=== PATIENT | male | born 1955 | race Caucasian/White ===

== ENCOUNTER 2017-02-22 23:26 | Emergency (ER) | payer SELFPAY ==
[~2017-02-22] VITALS: Ht 175.3 cm; Wt 94.0 kg
[2017-02-22 23:36] VITALS: BP 134/50; PULSE 96; RESP 20; TEMP 98.6; O2SAT 94
[2017-02-23 01:15] VITALS: BP 127/72; PULSE 84; RESP 16; O2SAT 95
[2017-02-23] MEDS ORDERED: ASPI81CH CHEW (01:16)
[2017-02-23] MEDS ORDERED: CEPH-460 PO (01:19)
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
[2017-02-23] MEDS ORDERED: IBUPROFEN 600 MG TAB PO ONE (01:30)
== END 2017-02-23 01:42 | disposition home or self-care (01) ==
LOC: PHED 23:26
DX: T24.031A Burn of unspecified degree of right lower leg, initial encounter (principal); X18.XXXA Contact with other hot metals, initial encounter; E78.00 Pure hypercholesterolemia, unspecified; Z72.0 Tobacco use
CPT/HCPCS: 99283

== ENCOUNTER 2018-01-26 20:02 | Inpatient (IN) | payer SELFPAY ==
[~2018-01-26] VITALS: Ht 175.3 cm; Wt 99.0 kg
[~2018-01-26 20:02] MED LIST: ASPI-516 CHEW; CEPH-460 PO
[2018-01-26] MEDS ORDERED: SODIUM CHLORIDE 0.9% FLUSH 10 ML FLUSH IVF PRN (20:15)
[2018-01-26] MEDS ORDERED: ASPIRIN 81 MG CHEW TAB PO ONE (20:15)
--- NOTE | 2018-01-26 20:19 | PD ---
HPI Chief Complaint: Chest Pain Time Seen by Provider: 20:12 Travel History International Travel<30 days: No Contact w/Intl Traveler<30days: No History of Present Illness HPI 62-year-old male patient with previous CAD status post stenting, hypertension, presents to the ER today because he states that he started having a left sided chest discomfort which was like a pressure starting about half an hour prior to arrival. He states that the chest pain is now subsiding and is now to 2 out of 10. He denies any nausea, shortness of breath, coughing, fevers, or any other symptoms. He does not know of any exacerbating or alleviating factors. Modifying Factors: None Associated Signs & Symptoms: Left-sided chest pain Risk Factors: Cardiac history PFSH Past Medical History Arthritis: Yes Asthma: No Blood Disorders: No Anxiety: Yes Heart Rhythm Problems: No Cancer: No Cardiovascular Problems: Yes (STENT) High Cholesterol: Yes Chemotherapy: No Congestive Heart Failure: No COPD: No Cerebrovascular Accident: No Coronary Artery Disease: Yes Diabetes: Yes (PRE) Diminished Hearing: Yes ([place] BILAT) Endocrine: No Gastrointestinal Disorders: No GERD: No Glaucoma: No Genitourinary: No Headaches: Yes (PT DENIES) Hepatitis: No Hiatal Hernia: No Hypertension: No Kidney Stones: No Musculoskeletal: No Neurologic: No Psychiatric: No Reproductive: No Respiratory: No Immunizations Current: Yes Myocardial Infarction: No Radiation Therapy: No Renal Failure: No Seizures: No Sleep Apnea: No Thyroid Disease: No Ulcer: No Past Surgical History AICD: No Cardiac Surgery: Yes (STENT) Coronary Stent: Yes Genitourinary Surgery: No Pacemaker: No Other Surgery: No Social History Alcohol Use: Yes (OCC) Tobacco Use: Yes (OCC) Substance Use: Yes (Marijuana and cocaine) Allergies-Medications (Allergen,Severity, Reaction): Coded Allergies: No Known Allergies (Verified Allergy, Unknown, 01/26/18) Reported Meds & Prescriptions Reported Meds & Active Scripts Active No Active Prescriptions or Reported Medications Review of Systems Except as stated in HPI: all other systems reviewed are Neg Physical Exam Narrative GENERAL: Well-developed elderly white male patient currently in mild distress. Awake and oriented 3. SKIN: Focused skin assessment warm/dry. HEAD: Atraumatic. Normocephalic. EYES: Pupils equal and round. No scleral icterus. No injection or drainage. ENT: No nasal bleeding or discharge. Mucous membranes pink and moist. NECK: Trachea midline. No JVD. Supple. CARDIOVASCULAR: Regular rate and rhythm. No murmur appreciated. RESPIRATORY: No accessory muscle use. Clear to auscultation. Breath sounds equal bilaterally. GASTROINTESTINAL: Abdomen soft, non-tender, nondistended. Hepatic and splenic margins not palpable. MUSCULOSKELETAL: No obvious deformities. No clubbing. No cyanosis. No edema. NEUROLOGICAL: Awake and alert. No obvious cranial nerve deficits. Motor grossly within normal limits. Normal speech. PSYCHIATRIC: Appropriate mood and affect; insight and judgment normal. Data Data Last Documented VS Vital Signs Date Time Temp Pulse Resp B/P (MAP) Pulse Ox O2 Delivery O2 Flow Rate FiO2 01/26/18 21:57 99 20 173/105 (127) 95 Room Air Orders Orders Basic Metabolic Panel (Bmp) (01/26/18 20:12) Ckmb (Isoenzyme) Profile (01/26/18 20:12) Complete Blood Count With Diff (01/26/18 20:12) Magnesium (Mg) (01/26/18 20:12) Prothrombin Time / Inr (Pt) (01/26/18 20:12) Act Partial Throm Time (Ptt) (01/26/18 20:12) Troponin I (01/26/18 20:12) Ecg Monitoring (01/26/18 20:12) Bilateral Bp Monitoring (01/26/18 20:12) Iv Access Insert/Monitor (01/26/18 20:12) Oximetry (01/26/18 20:12) Oxygen Administration (01/26/18 20:12) Aspirin Chew (Aspirin Chew) (01/26/18 20:15) Sodium Chloride 0.9% Flush (Ns Flush) (01/26/18 20:15) Chest, Pa & Lat (01/26/18 20:12) Electrocardiogram (01/26/18 20:08) CKMB (01/26/18 20:28) CKMB% (01/26/18 20:28) Heparin Inj (Heparin Inj) (01/26/18 22:00) Heparin Inj (Heparin Inj) (01/27/18 04:00) Heparin Inj (Heparin Inj) (01/27/18 04:00) Heparin-D5w 25,000 U/250 Ml (Heparin-D5w (01/26/18 22:00) Act Partial Throm Time (Ptt) (01/26/18 21:55) Cbc No Diff, Includes Plts (01/26/18 21:55) Cbc No Diff, Includes Plts (01/29/18 06:00) Act Partial Throm Time (Ptt) (01/27/18 04:55) Occult Blood (Hemoccult) Stool (01/26/18 21:55) Promethazine Inj (Phenergan Inj) (01/26/18 22:00) Admit Order (Ed Use Only) (01/26/18 21:56) Labs Laboratory Tests Test 01/26/18 20:28 White Blood Count 7.4 TH/MM3 Red Blood Count 4.53 MIL/MM3 Hemoglobin 15.4 GM/DL Hematocrit 45.5 % Mean Corpuscular Volume 100.4 FL Mean Corpuscular Hemoglobin 34.0 PG Mean Corpuscular Hemoglobin Concent 33.9 % Red Cell Distribution Width 12.0 % Platelet Count 260 TH/MM3 Mean Platelet Volume 8.2 FL Neutrophils (%) (Auto) 70.2 % Lymphocytes (%) (Auto) 22.2 % Monocytes (%) (Auto) 5.1 % Eosinophils (%) (Auto) 1.5 % Basophils (%) (Auto) 1.0 % Neutrophils # (Auto) 5.2 TH/MM3 Lymphocytes # (Auto) 1.6 TH/MM3 Monocytes # (Auto) 0.4 TH/MM3 Eosinophils # (Auto) 0.1 TH/MM3 Basophils # (Auto) 0.1 TH/MM3 CBC Comment DIFF FINAL Differential Comment Prothrombin Time 10.8 SEC Prothromb Time International Ratio 1.1 RATIO Activated Partial Thromboplast Time 23.3 SEC Blood Urea Nitrogen 16 MG/DL Creatinine 1.30 MG/DL Random Glucose 246 MG/DL Calcium Level 8.5 MG/DL Magnesium Level 2.0 MG/DL Sodium Level 135 MEQ/L Potassium Level 4.7 MEQ/L Chloride Level 101 MEQ/L Carbon Dioxide Level 26.4 MEQ/L Anion Gap 8 MEQ/L Estimat Glomerular Filtration Rate 56 ML/MIN Total Creatine Kinase 186 U/L Creatine Kinase MB 5.2 NG/ML Troponin I 0.12 NG/ML MDM Medical Decision Making Medical Screen Exam Complete: Yes Emergency Medical Condition: Yes Medical Record Reviewed: Yes Interpretation(s) EKG shows normal sinus rhythm at a rate of 94 bpm. No signs of acute ST elevations or depressions. Laboratory Tests Test 01/26/18 20:28 Mean Corpuscular Volume 100.4 FL (80.0-100.0) Neutrophils (%) (Auto) 70.2 % (16.0-70.0) Activated Partial Thromboplast Time 23.3 SEC (24.3-30.1) Random Glucose 246 MG/DL (74-106) Sodium Level 135 MEQ/L (136-145) Estimat Glomerular Filtration Rate 56 ML/MIN (>89) Creatine Kinase MB 5.2 NG/ML (0.5-3.6) Troponin I 0.12 NG/ML (0.02-0.05) Last 24 hours Impressions Chest X-Ray 01/26/182011 Signed Impressions: Service Date/Time: Friday, January 26, 2018 20:34 - CONCLUSION: No acute disease. Allan Ojeda MD Differential Diagnosis ACS versus anxiety versus dysrhythmias Narrative Course Chest x-ray did not show any signs of acute pulmonary processes. His lab work does show some mild elevation in troponin. Cardiac enzymes EKG did not show any signs of acute ST elevations. At this point, plan would be to admit the patient for further treatment, suspected non-ST elevation OR. Case was discussed with Dr. Thomas of hospitalist service for admission. Diagnosis Primary Impression: Non-ST elevation OR (NSTEMI) Admitting Information Admitting Physician Requests: Admit Scripts No Active Prescriptions or Reported Meds Samantha Portillo MD January 26, 2018 20:19
[2018-01-26 20:23] VITALS: RESP 18; O2SAT 99
[2018-01-26 20:48] VITALS: BP 152/99; PULSE 95; RESP 18; O2SAT 96
[2018-01-26 20:49] VITALS: BP_SYST 152; BP_SYST 157; BP_DIAS 103; BP_DIAS 99
[2018-01-26 20:51] LABS: AUTOMATED NEUTROPHIL # 5.2 TH/MM3 (1.8-7.7); BASOPHIL # 0.1 TH/MM3 (0-0.2); EOSINOPHIL # 0.1 TH/MM3 (0-0.4); EOSINOPHIL % 1.5 % (0.0-4.0); HEMATOCRIT 45.5 % (39.0-51.0); HEMOGLOBIN 15.4 GM/DL (13.0-17.0); LYMPH % 22.2 % (9.0-44.0); LYMPHOCYTE # 1.6 TH/MM3 (1.0-4.8); MEAN CELL VOLUME 100.4 FL (80.0-100.0); MEAN CORPUSCULAR HGB CONC 33.9 % (32.0-36.0); MEAN PLATELET VOLUME 8.2 FL (7.0-11.0); MONO % 5.1 % (0.0-8.0); MONOCYTE # 0.4 TH/MM3 (0-0.9); NEUT % 70.2 % (16.0-70.0); PLATELET COUNT 260 TH/MM3 (150-450); RED BLOOD COUNT 4.53 MIL/MM3 (4.50-5.90); WHITE BLOOD COUNT 7.4 TH/MM3 (4.0-11.0)
--- NOTE | 2018-01-26 20:57 | RADRPT ---
EXAM DATE/TIME: 01/26/2018 20:34 [facility] COMPARISON: No previous studies available for comparison. INDICATIONS : Chest pain. MEDICAL HISTORY : None. SURGICAL HISTORY : Cardiac stent. ENCOUNTER: Initial ACUITY: 1 day PAIN SCORE: 4/10 LOCATION: Bilateral upper chest FINDINGS: PA and lateral views of the chest demonstrate the lungs to be symmetrically aerated without evidence of mass, infiltrate or effusion. The cardiomediastinal contours are unremarkable. Osseous structure s are intact. CONCLUSION: No acute disease. Allan Ojeda MD on January 26, 2018 at 20:54 Board Certified Radiologist. This report was verified electronically.
[2018-01-26 20:59] LABS: CHLORIDE 101 MEQ/L (98-107); SODIUM (NA) 135 MEQ/L (136-145)
[2018-01-26 21:02] LABS: BICARBONATE 26.4 MEQ/L (21.0-32.0); BLOOD UREA NITROGEN 16 MG/DL (7-18); CALCIUM 8.5 MG/DL (8.5-10.1); GLUCOSE,RANDOM 246 MG/DL (74-106)
[2018-01-26 21:03] LABS: INTERNATIONAL NORMALIZED RATIO 1.1 RATIO; PROTHROMBIN TIME - PATIENT 10.8 SEC (9.8-11.6)
[2018-01-26 21:05] LABS: GLOMERULAR FILTRATION RATE 56 ML/MIN (>89)
[2018-01-26 21:10] LABS: TROPONIN I 0.12 NG/ML (0.02-0.05)
[2018-01-26 21:57] VITALS: BP 173/105; PULSE 99; RESP 20; O2SAT 95
[2018-01-26] MEDS ORDERED: HEPARIN SODIUM - IV 10,000 UNITS/10 ML VIAL IV PUSH ONE (22:00)
[2018-01-26] MEDS ORDERED: HEPARIN-D5W 25,000 U/250 ML 250 ML IV PRN (22:00)
[2018-01-26] MEDS ORDERED: PROMETHAZINE INJ 25 MG/ML VIAL IM ONE (22:00)
[2018-01-26] MEDS ORDERED: ACETAMINOPHEN 325 MG TAB PO PRN (22:30)
[2018-01-26] MEDS ORDERED: SODIUM CHLORIDE 0.9% FLUSH 10 ML FLUSH IV FLUSH PRN (22:30)
[2018-01-26] MEDS ORDERED: NALOXONE HCL 0.4 MG/ML AMP IV PUSH PRN (22:30)
[2018-01-26 23:17] VITALS: BP 151/90; PULSE 90; RESP 18; O2SAT 95
[2018-01-27] VITALS (8 sets, daily range): BP systolic 117–140; BP diastolic 67–93; PULSE 81–104; RESP 16–20; TEMP 97.9–98.8; O2SAT 94–98
[2018-01-27 02:39] LABS: TROPONIN I 20.4 NG/ML (0.02-0.05)
[2018-01-27 03:03] LABS: BICARBONATE 23.9 MEQ/L (21.0-32.0); CALCIUM 8.5 MG/DL (8.5-10.1)
[2018-01-27 03:07] LABS: CREATININE 0.87 MG/DL (0.60-1.30)
[2018-01-27] MEDS ORDERED: HEPARIN SODIUM - IV 10,000 UNITS/10 ML VIAL IV PUSH PRN ×2 (04:00)
--- NOTE | 2018-01-27 04:03 | HHI.HP ---
HPI Service [facility] Primary Care Physician No Primary Care Physician Admission Diagnosis Non-ST elevation MO Diagnoses: Chief Complaint: chest pressure Travel History International Travel<30 Days: No Contact w/Intl Traveler <30 Da: No Traveled to Known Affected Are: No History of Present Illness 62 y/o male with a history of CAD with stenting, HTN (not on any medications), BPH,and cocaine abuse presented to the [place] ED with complaints of chest pressure. Patient was found to have a troponin of .12 and was transferred to the main facility. Upon examination patient is laying in bed, states he has not had any chest pain since he arrived. He states prior to his arrival to the ED earlier he had one episode of chest pressure that resolved. No associated symptoms or radiation. Denies any sob , fever or chills. He states his last cocaine use was 1 week ago. He complaining of right elbow intermittent pain from a fall one week ago, worse with flexion. He states his last stent was 6 years ago and he does not follow with a record clerk. Review of Systems Except as stated in HPI: all other systems reviewed are Neg Past Family Social History Past Medical History CAD with stenting HTN BPH Past Surgical History Cardiac stents Left knee surgery Reported Medications Reported Meds & Active Scripts Active No Active Prescriptions or Reported Medications Allergies: Coded Allergies: No Known Allergies (Verified Allergy, Unknown, 01/26/18) Active Ordered Medications Current Medications Medications (Trade) Dose Ordered Sig/Sadi Route Start Time Stop Time Status Last Admin (Heparin Inj) 5,000 units UNSCH PRN IV PUSH 01/27/18 04:00 (Heparin Inj) 2,500 units UNSCH PRN IV PUSH 01/27/18 04:00 Heparin Sodium/ Dextrose 250 ml @ 10 mls/hr TITRATE PRN IV 01/26/18 22:00 01/26/18 22:16 (NS Flush) 2 ml UNSCH PRN IV FLUSH 01/26/18 22:30 (NS Flush) 2 ml BID IV FLUSH 01/27/18 09:00 (Tylenol) 650 mg Q4H PRN PO 5/13/18 22:30 (Narcan Inj) 0.4 mg UNSCH PRN IV PUSH 01/26/18 22:30 Family History Patient denies any family history Social History Tobacco use: 09/19 PPD Alcohol use: Occasionally Illicit drug use: Cocaine Physical Exam Vital Signs Vital Signs Date Time Temp Pulse Resp B/P (MAP) Pulse Ox O2 Delivery O2 Flow Rate FiO2 01/27/18 03:58 98.2 81 18 117/87 (97) 94 01/27/18 03:02 98.2 81 16 117/67 (84) 95 01/27/18 02:12 92 17 140/93 (109) 95 01/26/18 23:17 90 18 151/90 (110) 95 Room Air 01/26/18 21:57 99 20 173/105 (127) 95 Room Air 01/26/18 20:49 152/99 (116) 157/103 (121) 01/26/18 20:48 95 18 152/99 (116) 96 Room Air 01/26/18 20:23 99 Room Air 01/26/18 20:23 18 99 Room Air 01/26/18 20:23 18 99 Room Air Physical Exam GENERAL: This is a well-nourished, well-developed patient, in no apparent distress. SKIN: No rashes, ecchymoses or lesions. Cool and dry. HEAD: Atraumatic. Normocephalic EYES: Pupils equal round and reactive. CARDIOVASCULAR: Regular rate and rhythm without murmurs, gallops, or rubs. RESPIRATORY: Clear to auscultation. Breath sounds equal bilaterally. No wheezes , rales, or rhonchi. GASTROINTESTINAL: Abdomen soft, non-tender, nondistended. MUSCULOSKELETAL: Extremities without clubbing, cyanosis, or edema. No joint tenderness, effusion, or edema noted. No calf tenderness. NEUROLOGICAL: Awake and alert. Motor and sensory grossly within normal limits. Normal speech. Laboratory Laboratory Tests Test 01/26/18 20:28 01/27/18 02:00 White Blood Count 7.4 Red Blood Count 4.53 Hemoglobin 15.4 Hematocrit 45.5 Mean Corpuscular Volume 100.4 Mean Corpuscular Hemoglobin 34.0 Mean Corpuscular Hemoglobin Concent 33.9 Red Cell Distribution Width 12.0 Platelet Count 260 Mean Platelet Volume 8.2 Neutrophils (%) (Auto) 70.2 Lymphocytes (%) (Auto) 22.2 Monocytes (%) (Auto) 5.1 Eosinophils (%) (Auto) 1.5 Basophils (%) (Auto) 1.0 Neutrophils # (Auto) 5.2 Lymphocytes # (Auto) 1.6 Monocytes # (Auto) 0.4 Eosinophils # (Auto) 0.1 Basophils # (Auto) 0.1 CBC Comment DIFF FINAL Differential Comment Prothrombin Time 10.8 Prothromb Time International Ratio 1.1 Activated Partial Thromboplast Time 23.3 Blood Urea Nitrogen 16 15 Creatinine 1.30 0.87 Random Glucose 246 148 Calcium Level 8.5 8.5 Magnesium Level 2.0 Sodium Level 135 135 Potassium Level 4.7 3.9 Chloride Level 101 103 Carbon Dioxide Level 26.4 23.9 Anion Gap 8 8 Estimat Glomerular Filtration Rate 56 90 Total Creatine Kinase 186 1119 Creatine Kinase MB 5.2 102.5 Troponin I 0.12 20.40 Creatine Kinase MB % 9.2 Result Diagram: 01/26/18202701/27/18199 Imaging Last Impressions Chest X-Ray 01/26/182011 Signed Impressions: Service Date/Time: Friday, January 26, 2018 20:34 - CONCLUSION: No acute disease. Allan Ojeda MD Caprini VTE Risk Assessment Caprini VTE Risk Assessment: Mod/High Risk (score >= 2) Caprini Risk Assessment Model Point Value = 1 Point Value = 2 Point Value = 3 Point Value = 5 Age 41-60 Minor surgery BMI > 25 kg/m2 Swollen legs Varicose veins or History of unexplained or recurrent spontaneous Oral contraceptives or hormone replacement Sepsis (< 1 month) Serious lung disease, including pneumonia (< 1 month) Abnormal pulmonary function Acute myocardial infarction Congestive heart failure (< 1 month) History of inflammatory bowel disease Medical patient at bed rest Age 61-74 Arthroscopic surgery Major open surgery (> 45 min) Laparoscopic surgery (> 45 min) Malignancy Confined to bed (> 72 hours) Immobilizing plaster cast Central venous access Age >= 75 History of VTE Family history of VTE Factor V Leiden Prothrombin [id number] Lupus anticoagulant Anticardiolipin antibodies Elevated serum homocysteine Heparin-induced thrombocytopenia Other congenital or acquired thrombophilia Stroke (< 1 month) Elective arthroplasty Hip, pelvis, or leg fracture Acute spinal cord injury (< 1 month) Prophylaxis Regimen Total Risk Factor Score Risk Level Prophylaxis Regimen 0-1 Low Early ambulation 2 Moderate Order ONE of the following: *Sequential Compression Device (SCD) *Heparin 5000 units SQ BID 3-4 Higher Order ONE of the following medications: *Heparin 5000 units SQ TID *Enoxaparin/Lovenox 40 mg SQ daily (WT < 150 kg, CrCl > 30 mL/min) *Enoxaparin/Lovenox 30 mg SQ daily (WT < 150 kg, CrCl > 10-29 mL/min) *Enoxaparin/Lovenox 30 mg SQ BID (WT < 150 kg, CrCl > 30 mL/min) AND/OR *Sequential Compression Device (SCD) 5 or more Highest Order ONE of the following medications: *Heparin 5000 units SQ TID (Preferred with Epidurals) *Enoxaparin/Lovenox 40 mg SQ daily (WT < 150 kg, CrCl > 30 mL/min) *Enoxaparin/Lovenox 30 mg SQ daily (WT < 150 kg, CrCl > 10-29 mL/min) *Enoxaparin/Lovenox 30 mg SQ BID (WT < 150 kg, CrCl > 30 mL/min) AND *Sequential Compression Device (SCD) Assessment and Plan Problem List: (1) Non-ST elevation MO (NSTEMI) ICD Code: I21.4 - Non-ST elevation (NSTEMI) myocardial infarction Status: Acute (2) Cocaine abuse ICD Code: F14.10 - Cocaine abuse, uncomplicated Status: Acute Assessment and Plan 62 y/o male with a history of CAD with stenting, HTN (not on any medications), BPH,and cocaine abuse presented to the [place] ED with complaints of chest pressure. NSTEMI EKG reviewed and shows SR, no ST elevation Troponin .12-->20.40 -Heparin drip -Consult cardiology -Morphine IV for chest pain -Serial troponin and EKGs -ASA x 1 HTN, chronic not on any medications -Clonidine PRN, monitor vitals Cocaine abuse -Counseled DVT prophylaxis: Heparin Discussed Condition With Patient and RN Physician Certification 2 Midnight Certification Type: Admission for Inpatient Services Order for Inpatient Services The services are ordered in accordance with Medicare regulations or non- Medicare payer requirements, as applicable. In the case of services not specified as inpatient-only, they are appropriately provided as inpatient services in accordance with the 2-midnight benchmark. Estimated LOS (days): 2 days is the estimated time the patient will need to remain in the hospital, assuming treatment plan goals are met and no additional complications. Post-Hospital Plan: Yanna Holder January 27, 2018 04:03
[2018-01-27] MEDS ORDERED: ASPIRIN 325 MG TAB PO ONE (04:30)
[2018-01-27] MEDS: SODIUM CHLOR 0.9% 1000 ML INJ 1,000 ML IV SCH ×2 (06:06→14:07)
[2018-01-27 07:03] LABS: AUTOMATED NEUTROPHIL # 3.9 TH/MM3 (1.8-7.7); BASOPHIL % 0.6 % (0.0-2.0); EOSINOPHIL # 0.1 TH/MM3 (0-0.4); EOSINOPHIL % 1.7 % (0.0-4.0); HEMATOCRIT 44.9 % (39.0-51.0); HEMOGLOBIN 15.4 GM/DL (13.0-17.0); LYMPHOCYTE # 2.5 TH/MM3 (1.0-4.8); MEAN CORPUSCULAR HEMOGLOBIN 35.3 PG (27.0-34.0); MEAN CORPUSCULAR HGB CONC 34.3 % (32.0-36.0); MEAN PLATELET VOLUME 9.4 FL (7.0-11.0); MONO % 6.3 % (0.0-8.0); MONOCYTE # 0.4 TH/MM3 (0-0.9); NEUT % 55.4 % (16.0-70.0); PLATELET COUNT 205 TH/MM3 (150-450); RED BLOOD COUNT 4.36 MIL/MM3 (4.50-5.90); RED CELL DISTRIBUTION WIDTH 12.6 % (11.6-17.2)
[2018-01-27] MEDS: SODIUM CHLORIDE 0.9% FLUSH 10 ML FLUSH IV FLUSH SCH ×2 (09:18→21:00)
--- NOTE | 2018-01-27 10:24 | HHI.PR ---
Addendum to Inpatient Note Addendum Reason: Additional Documentation Additional Information Patient seen today, lying in bed, awake, alert, no acute distress, heart sounds regular rate rhythm, no murmurs, no lower extremity edema. Patient denies having any active chest pain. reports using cocaine within the last week. Patient also thinks he fell on his right elbow sometime earlier in the week and once us to address it. Right elbow seems to be intact but has tenderness to palpation over the olecranon fossa. Obtaining elbow x-ray. Ricci Brink MD January 27, 2018 10:24
--- NOTE | 2018-01-27 12:21 | RADRPT ---
EXAM DATE/TIME: 01/27/2018 11:47 [facility] COMPARISON: No previous studies available for comparison. INDICATIONS : Patient fell on right elbow. MEDICAL HISTORY : None. SURGICAL HISTORY : None. ENCOUNTER: Initial ACUITY: 1 week PAIN SCORE: 3/10 LOCATION: Right posterior Elbow FINDINGS: Multiple view examination of the right elbow demonstrates soft tissue swelling and degenerative mcclain es without joint effusion, or fracture. The osseous structures are in normal alignment. Bony minera lization is normal. CONCLUSION: Soft tissue swelling. No fracture. Allan Ojeda MD on January 27, 2018 at 12:17 Board Certified Radiologist. This report was verified electronically.
[2018-01-27 13:06] LABS: TROPONIN I GREATER THAN 40.00 NG/ML (0.02-0.05)
[2018-01-27] MEDS ORDERED: HEPARIN-NS/PF FLUSH BAG 1,000 ML IV FLUSH ONE (14:21)
[2018-01-27] MEDS ORDERED: NITROGLYCERIN INJ 5 ML ONE (14:21)
[2018-01-27] MEDS ORDERED: MIDAZOLAM HCL 5 MG/5 ML VIAL ONE (14:52)
--- NOTE | 2018-01-27 15:24 | MB ---
cc: Rosalio Em MD DATE: 01/27/2018 HISTORY OF PRESENT ILLNESS: A 62-year-old white male with a history of coronary artery disease, coronary stent, cocaine use, last 1 week ago, and hypertension. He presented to the emergency room with chest pressure and was found to have non-ST elevation myocardial infarction with the last troponin over 40. He has not had any further chest discomfort. He has history of coronary stenting 6 years ago. He has not had any shortness of breath or peripheral edema. PAST MEDICAL HISTORY: Positive for coronary artery disease, coronary stent 6 years ago, hypertension, BPH, left knee surgery. ALLERGIES: NONE. SOCIAL HISTORY: The patient is a smoker. He drinks alcohol occasionally. He uses cocaine. FAMILY HISTORY: Negative for heart disease. REVIEW OF SYSTEMS: Otherwise negative. PHYSICAL EXAMINATION: VITAL SIGNS: Blood pressure 140/75, pulse 93 and regular. HEENT: Negative. NECK: 2+ carotid upstrokes, no bruits. LUNGS: Clear. HEART: Regular with no murmur, gallop or rub. ABDOMEN: Soft. No bruits. EXTREMITIES: Without edema, distal pulses. NEUROLOGIC: Grossly nonfocal. DIAGNOSTIC DATA: EKG was reviewed and showed a sinus rhythm, inferior Q-waves and nonspecific T-wave changes. LABORATORY DATA: Hemoglobin 15.4. Potassium 3.9, creatinine 1.3 and 0.9. CK 186, 1119, 1474. Troponin 0.12, 20.4 and greater than 40.0. DIAGNOSES: 1. Acute non-ST elevation myocardial infarction. 2. Cocaine abuse. 3. Hypertension. 4. Coronary artery disease, history of coronary stenting. 5. Smoking. PLAN: Mr. Valencia will be scheduled for cardiac catheterization and coronary intervention if necessary. He understands risks and benefits and wishes to proceed. He was strongly encouraged to stop using cocaine and also to quit smoking. Rosalio Em MD OQ/SB , 03:07 PM , 03:24 PM
[2018-01-27] MEDS ORDERED: HEPARIN SODIUM - IV 10,000 UNITS/10 ML VIAL ONE (15:38)
[2018-01-27] MEDS ORDERED: CLOPIDOGREL 300 MG TAB ONE (16:00)
--- NOTE | 2018-01-27 16:20 | CATHPROC ---
[email or web address] HIS Report Study Information Study Number Admission Scheduled Start Study Start [id number] Jan 26 2018 9:58PM 01/27/2018 Jan 27 2018 2:46PM [place] Service Cardiac Catheterization Admit Source Facility Department Other [facility] - Agricultural Equipment Sales Engineer Physician and Clinical Staff Initial Rosalio Felix Salesperson Shoes Sergio RN, Colin Recorder Leo Francis RCIS(BS) Scrub Sanjana Patel,RT(R) Procedures Performed Procedure Location (Site) Vessel Name Angiogram LV LV Ventricle Coronary Angiograms LCA Left Coronary Coronary Angiograms RCA Right Coronary L Heart Cath PTCA CIRC Mid CIRC Stent CIRC Mid CIRC Wire insertion Fem Art (right) Femoral Art Equipment Time Brand Mgr Description Size Mfg Part Number Used/Scraped WIRE, BALANCE MIDDLEWEIGHT [id number] 15:44 [employer] 190CM Used 190CM *[id number] TRANSDUCER, TRUWAVE [id number] 14:51 ATKINSON WALKER * Used W/STOCKCOCK *[id number] *[id number] [id number] *[id number] *[id number] 15:59 DAIG/ST. ONEL MEDICAL ANGIOSEAL, FR6 VIP FR 6 Used *[id number] 14:51 Cuurio INDUSTRIES PACK, CCL CUSTOM * Used *[id number] 14:51 Cuurio PACER PEN, SKIN DUAL W/ RULER * Used *[id number] 15:48 MEDTRONIC BALLOON, 2.0 X 10MM EUPHORA 10MM Used *[id number] 14:50 MEDTRONIC JL 4.0 DXTERITY CATHETER FR 5 Used *[id number] 15:55 MEDTRONIC STENT, 2.75 18 INTEGRITY 2.75 18 Used *[id number] 15:42 Mimetas MEDICAL 30 CLEMENT INDEFLATOR Used *[id number] 15:45 Mimetas MEDICAL SHEATH, FR6.5 PRELUDE 11CM FR 6.5 038ACT Used *[id number] 14:51 Splash.FM WIRE, 3MMJ .035 180CM 180CM Used *[id number] PROBE COVER, STERILE [id number] 14:51 Augmentra MEDICAL * Used ULTRASOUND W/ GEL *[id number] 14:51 [facility], 4 PORT * Used *[id number] 14:51 NAMIC TUBING, HIGH PRESSURE 48" 48" Used *[id number] 14:51 NYCOMED OMNIPAQUE, 350 MG, 150ML 150ML [id number] Used 15:33 NYCOMED OMNIPAQUE, 350 MG, 50ML 50ML [id number] Used [id number] 14:51 TIWARI MEDICAL BLANKET,WARM AIR CCL * Used *[id number] 14:51 TERUMO MEDICAL SHEATH, FR5 TERUMO (10CM) FR 5 Used *[id number] [id number] 15:41 TERUMO MEDICAL SHEATH, FR6 TERUMO (10CM) FR 6 Used *[id number] Equipment Model, Serial, Lot Number and Expiration Data Description Model Number Serial Number Lot Number Expiration Date ANGIOSEAL, FR6 VIP [id number] 09-15-2018 JL 4.0 DXTERITY CATHETER [id number] 06-05-2020 STENT, 2.75 18 INTEGRITY [id number] 01-18-2019 History: Allergies Allergy Reaction No Known Allergies History: Risk Factors Family History of Hypertension Dyslipidemia Previous OR Previous Heart Failure Premature CAD Yes Yes Yes Yes No Prior Valve Prior PCI Prior PCIDate Prior CABG Surgery No Yes 01/18/2016 No Cerebrovascular Peripheral Artery Chronic Lung On Dialysis Diabetes Disease Disease Disease No No No No No History: Symptoms/Diagnosis Selection Items Chest pain History: Stress Tests Stress or Imaging Studies Performed No History: Other Disease Selection Items CAD HTN History: Other Current Smoker No Labs Hgb (g/dl) Hct (%) WBC (l/cumm) Platelets (thousands) 11.60-17.00 35.00-51.00 4.00-11.00 150.00-450.00 15.4 44.9 7 205 Glucose (mg/dl) BUN (mg/dl) Creatinine (mg/dl) BUN:Creatinine (1:x) 74.00-106.00 7.00-18.00 0.50-1.30 10.00-20.00 148 15 0.8 18.8 Na (meq/l) K (meq/l) 136.00-145.00 3.50-5.10 135 3.9 INR (PTT:PT) 0.90-1.10 1.1 Troponin I (ng/ml) CPK (u/l) CPK-MB (ng/ML) 0.02-0.05 26.00-308.00 0.50-3.60 40 1119 Not Drawn Medication Medication Total Dose (Bolus/Oral) Medication Total Dosage/Unit 1% XYLOCAINE 20 mL FENTANYL 100 mcg HEPARIN 7000 units NTG (IC) 200 mcg PLAVIX 600 mg VERSED 5 mg Medications (Bolus/Oral) Medication Time Given Dosage/Unit Administered By Reason VERSED 01/27/2018 3:20:20 PM 2 mg Sergio GOETZ, Colin 2 mg VERSED given in lab by Sergio GOETZ, Colin in Left Antecubital via Peripheral IV. Ordered by Rosalio Em. FENTANYL 01/27/2018 3:21:20 PM 50 mcg Sergio GOETZ, Colin 50 mcg FENTANYL given in lab by Sergio GOETZ, Colin in Left Antecubital via Peripheral IV. Ordered by Rosalio Lew. VERSED 01/27/2018 3:29:41 PM 1 mg Sergio GOETZ, Colin 1 mg VERSED given in lab by Sergio GOETZ, Colin in Left Antecubital via Peripheral IV. Ordered by Rosalio Em. 1% XYLOCAINE 01/27/2018 3:30:10 PM 20 mL Rosalio Em 20 mL 1% XYLOCAINE given in lab by Rosalio Em in Right Groin via Subcutaneous. FENTANYL 01/27/2018 3:30:15 PM 25 mcg Sergio GOETZ, Colin 25 mcg FENTANYL given in lab by Sergio GOETZ, Colin in Left Antecubital via Peripheral IV. Ordered by Rosalio Lew. FENTANYL 01/27/2018 3:34:58 PM 25 mcg Sergio GOETZ, Colin 25 mcg FENTANYL given in lab by Sergio GOETZ, Colin in Left Antecubital via Peripheral IV. Ordered by Rosalio Lew. HEPARIN 01/27/2018 3:43:56 PM 7000 units Sergio GOETZ, Colin 7000 units HEPARIN given in lab by Sergio GOETZ, Colin in Left Antecubital via Peripheral IV. Ordered by Rosalio Em. NTG (IC) 01/27/2018 3:47:11 PM 200 mcg Sanjana Patel 200 mcg NTG (IC) given in lab by Sanjana Patel, RT(R) via Intra-coronary. Ordered by Rosalio Em . VERSED 01/27/2018 3:49:05 PM 1 mg Sergio GOETZ, Colin 1 mg VERSED given in lab by Colin Hill RN in Left Antecubital via Peripheral IV. Ordered by Rosalio Em. PLAVIX 01/27/2018 4:02:00 PM 600 mg Colin Hill RN 600 mg PLAVIX given in lab by Colin Hill RN via Oral. Ordered by Rosalio Em. VERSED 01/27/2018 4:06:27 PM 1 mg Colin Hill RN 1 mg VERSED given in lab by Colin Hill RN in Left Antecubital via Peripheral IV. Ordered by Rosalio Em. Medication (Drip) Medication Time Given Dosage/Unit Concentration/Unit Diluent (ml) Solution IV Solutions 01/27/2018 2:46:30 PM 0 mL (IV) 500 NaCl .9 Patient arrived on IV Solutions in Left Antecubital via Peripheral IV. Pump/Drip Flow = 20 ml/hr usin g NaCl .9. Ordered by Rosalio Em. Initial Case Assessment Cardiovascular HR Rhythm NIBP Chest Pain 87 nsr 148/94 0 Edema Present Skin color Skin None Normal Warm Dry Circulatory - Right Pulses Dorsalis Pedis Femoral 2 2 Scale (0,1,2,3,4,d) Circulatory - Left Pulses Dorsalis Pedis Femoral 1 Scale (0,1,2,3,4,d) Neurological State Oriented to time-place- Alert Moves all extremities person Respiration - General Respiration Rate SpO2 (%) (B/min) 15 97 Final Case Assessment Cardiovascular HR Rhythm NIBP Chest Pain 83 nsr 120/81 0 Edema Present Skin color Skin None Normal Warm Dry Circulatory - Right Pulses Dorsalis Pedis Femoral 2 2 Scale (0,1,2,3,4,d) Circulatory - Left Pulses Dorsalis Pedis Femoral 1 Scale (0,1,2,3,4,d) Neurological State Oriented to time-place- Alert Moves all extremities person Respiration - General Respiration Rate SpO2 (%) (B/min) 15 97 Chronological Log Time Study Chronological Log 14:46:23 Patient arrived via Bed. Heparin drip DCed upon coal picker per MD. 14:46:23 Patient Name, D.O.B, / Armband Verified By R.N. 14:46:24 Consent signed by the physician and the patient and verified by the Agricultural Equipment Sales Engineer staff. 14:46:24 Pre-op and post- op instructions given; patient acknowledges understanding of instructions. 14:46:25 Verbal Stimulation=2 Physical Stimulation=2 Airway=2 Respiration=2 TOTAL=8. (0=absent, 1=li mited, 2=present) 14:46: Presedation assessment performed by Agricultural Equipment Sales Engineer RN. 14:46: Immediate Presedation assesment performed by physician. 14:46: Patient has been NPO for More than 6Hrs. 14:46: Skin Breakdown- none per patient 14:46: Patient Warmer Placed on the Table. 14:46: Yordan Prominences Protected 14:46: A # 20 IV was noted in the Antecubital (left). Grade = 0 Patient arrived on IV Solutions in Left Antecubital via Peripheral IV. Pump/Drip Flow = 20 ml/h r using NaCl .9. Ordered 14:: by Rosalio Em. 14:46: History and physical on the chart or being dictated. Vitals capture started with the following parameters, Patient=Adult, Interval=5 min, Initial Pr gujfjm=397 mmHg, 14:51:09 Deflation Rate=5 mmHg, Cuff placed on Left Arm 14:51:29 Reference ECG taken 14:51:45 HR=87 bpm, YEAB=611/94 mmhg, SpO2=95.0 %, Resp=14 B/min, Pain=0, Johnathon=10, Gamez=2 Assessment: Initial Case, HR=87 BPM, Rhythm=nsr, FSAF=810/94 mmhg, Chest Pain=0, Edema=None, Co hanh=Normal, Skin = Warm, Dry Right Pulses: Guzman Ped=2, Femoral=2 14:52:31 Left Pulses: Guzman Ped=1 Neurological: State=Alert, Ox3, MONTOYA Respiration: Resp=15 B/min, SpO2=97 % 14:56:40 Bilateral groins prepped with 2% chlorhexidine, and draped after a 3 minute waiting time. 14:56:46 HR=85 bpm, SFQZ=771/95 mmhg, SpO2=95.0 %, Resp=13 B/min, Pain=0, Johnathon=10, Gamez=2 15:01:45 HR=88 bpm, UCSX=554/98 mmhg, SpO2=95.0 %, Resp=15 B/min, Pain=0, Johnathon=10, Gamez=2 15:06:46 HR=87 bpm, NKQZ=309/91 mmhg, SpO2=96.0 %, Resp=13 B/min, Pain=0, Johnathon=10, Gamez=2 15:07:49 paged 15:09:04 Pressure channel 1 zeroed. 15:11:48 HR=85 bpm, PYIK=073/88 mmhg, SpO2=97.0 %, Resp=12 B/min, Pain=0, Johnathon=10, Gamez=2 15:16:44 HR=81 bpm, OHLJ=711/86 mmhg, SpO2=97.0 %, Resp=15 B/min, Pain=0, Johnathon=10, Gamez=2 15:20:00 MD arrived. 15:20:10 Immediate Presedation assesment performed by physician. 15:20:20 2 mg VERSED given in lab by Colin Hill RN in Left Antecubital via Peripheral IV. Ordered by Rosalio Em. 15:21:20 50 mcg FENTANYL given in lab by Colin Hill RN in Left Antecubital via Peripheral IV. Orde red by Rosalio Em. 15:22:27 Contrast Scanned 15:23:03 HR=87 bpm, RMFY=352/78 mmhg, SpO2=90.0 %, Resp=16 B/min, Pain=0, Johnathon=10, Gamez=2 15:26:49 HR=84 bpm, MRUX=903/77 mmhg, SpO2=98.0 %, Resp=18 B/min, Pain=0, Johnathon=10, Gamez=2 15:29:41 1 mg VERSED given in lab by Colin Hill RN in Left Antecubital via Peripheral IV. Ordered by Rosalio Em. Time Out. Correct patient, correct procedure, correct physician, power injector not loaded with contrast with surgical 15:29:52 team present. Time Out Concurred by MD and individual staff in procedure. 15:29:58 Case Start 15:30:03 Verbal Stimulation=2 Physical Stimulation=2 Airway=2 Respiration=2 TOTAL=8. (0=absent, 1=li mited, 2=present) 15:30:10 20 mL 1% XYLOCAINE given in lab by Rosalio Em in Right Groin via Subcutaneous. 15:30:15 25 mcg FENTANYL given in lab by Colin Hill RN in Left Antecubital via Peripheral IV. Julio major by Rosalio Em. 15:31:36 Access site was Right Femoral Artery. 15:31:48 HR=83 bpm, ZWIP=841/88 mmhg, SpO2=96.0 %, Resp=15 B/min, Pain=0, Johnathon=10, Gamez=2 15:31:49 A SHEATH, FR5 TERUMO (10CM) FR 5 was advanced into the Fem Art (right) using the Percutaneo us technique. A PIGTAIL ANG. INFINITI CATHETER FR 5 was advanced over a wire. OMNIPAQUE, 350 MG, 150ML 150ML was used 15:32:01 for injections. Recorded Pressure: LV, HR=92, Condition=Condition 1 15:33:04 (Left Ventricle) LV 112/13/14 15:33:14 The LV was injected at 10 cc/sec for a total of 30. OMNIPAQUE, 350 MG, 50ML 50ML used. Recorded Pressure: LV, Ao, HR=94, Condition=Condition 1 15:34:40 (Left Ventricle) LV 117/12/16, (Aorta) Ao 118/77/95 15:34:58 25 mcg FENTANYL given in lab by Colin Hill RN in Left Antecubital via Peripheral IV. Julio red by Rosalio Em. 15:35:00 Catheter was removed A JL 4.0 DXTERITY CATHETER FR 5 was advanced over a wire. OMNIPAQUE, 350 MG, 150ML 150ML was us ed for 15:35:01 injections. 15:36:07 The LCA was injected and visualized at various angles. OMNIPAQUE, 350 MG, 150ML 150ML used . Recorded Pressure: Ao, HR=83, Condition=Condition 1 15:36:28 (Aorta) Ao 116/72/92 15:36:49 HR=85 bpm, RDLJ=898/80 mmhg, SpO2=94.0 %, Resp=18 B/min, Pain=0, Johnathon=10, Gamez=2 15:37:49 Catheter was removed A AR MOD INFINITI CATHETER FR 5 was advanced over a wire. OMNIPAQUE, 350 MG, 150ML 150ML was us ed for 15:37:50 injections. 15:38:25 Activated Clotting Time Drawn 15:40:12 The RCA was injected and visualized at various angles. OMNIPAQUE, 350 MG, 50ML 50ML used. 15:40:20 ACT (Normal Range 90-180) = 133 15:41:18 Catheter was removed 15:41:48 HR=87 bpm, YQJF=573/80 mmhg, SpO2=95.0 %, Resp=17 B/min, Pain=0, Johnathon=10, Gamez=2 15:43:56 7000 units HEPARIN given in lab by Colin Hill RN in Left Antecubital via Peripheral IV. O rdered by Rosalio Em. A SHEATH, FR6.5 PRELUDE 11CM FR 6.5 was exchanged in the Fem Art (right). This was necessary in order to 15:44:53 accomodate a larger catheter. A XBC 3.5 GUIDE CATHETER FR 6 was advanced over a wire. OMNIPAQUE, 350 MG, 150ML 150ML was used for 15:44:57 injections. 15:46:22 Activated Clotting Time Drawn 15:46:51 HR=86 bpm, OVZC=214/74 mmhg, SpO2=98.0 %, Resp=21 B/min, Pain=0, Johnathon=10, Gamez=2 15:47:11 200 mcg NTG (IC) given in lab by Sanjana Patel RT(R) via Intra-coronary. Ordered by Rosalio Menchaca. 15:47:30 A WIRE, BALANCE MIDDLEWEIGHT 190CM 190CM was inserted via Fem Art (right). 15:48:22 Interventional wire has crossed the lesion A BALLOON, 2.0 X 10MM EUPHORA 10MM was inserted over WIRE, BALANCE MIDDLEWEIGHT 190CM 190CM via the 15:48:29 Fem Art (right). 15:49:05 1 mg VERSED given in lab by Colin Hill RN in Left Antecubital via Peripheral IV. Ordered by Rosalio Em. A BALLOON, 2.0 X 10MM EUPHORA 10MM over a WIRE, BALANCE MIDDLEWEIGHT 190CM 190CM in the CIRC Mi d was 15:49:53 inflated using a 30 CLEMENT INDEFLATOR at 12 clement for 10 sec. A BALLOON, 2.0 X 10MM EUPHORA 10MM over a WIRE, BALANCE MIDDLEWEIGHT 190CM 190CM in the CIRC Mi d was 15:51:46 inflated using a 30 CLEMENT INDEFLATOR at 16 clement for 30 sec. 15:51:50 HR=95 bpm, JAID=873/75 mmhg, SpO2=95.0 %, Resp=15 B/min, Pain=0, Johnathon=10, Gamez=2 A BALLOON, 2.0 X 10MM EUPHORA 10MM over a WIRE, BALANCE MIDDLEWEIGHT 190CM 190CM in the CIRC Mi d was 15:52:19 inflated using a 30 CLEMENT INDEFLATOR at 12 clement for 7 sec. 15:52:35 ACT (Normal Range 90-180) = 308 A BALLOON, 2.0 X 10MM EUPHORA 10MM over a WIRE, BALANCE MIDDLEWEIGHT 190CM 190CM in the CIRC Mi d was 15:52:42 inflated using a 30 CLEMENT INDEFLATOR at 12 clement for 7 sec. 15:53:27 Balloon Removed. An STENT, 2.75 18 INTEGRITY 2.75 18 Bare Metal Stent was inserted through a XBC 3.5 GUIDE KAREN TER FR 6 over 15:55:19 a WIRE, BALANCE MIDDLEWEIGHT 190CM 190CM. 15:56:49 HR=90 bpm, MAEG=953/73 mmhg, SpO2=96.0 %, Resp=16 B/min, Pain=0, Johnathon=10, Gamez=2 A STENT, 2.75 18 INTEGRITY 2.75 18 was deployed using a 30 CLEMENT INDEFLATOR at 12 atmospheres for 18 seconds in 15:57:00 the CIRC Mid. 15:57:42 Re-inflated the stent balloon in the CIRC Mid to 16 CLEMENT for 12 seconds. 15:58:09 Delivery device removed 15:59:08 Wire removed 15:59:12 Catheter was removed 16:00:19 An injection in the Fem Art (right) was made through the SHEATH, FR6.5 PRELUDE 11CM FR 6.5. 16:01:50 HR=85 bpm, EUQZ=369/79 mmhg, SpO2=98.0 %, Resp=17 B/min, Pain=0, Johnathon=10, Gamez=2 16:02:00 600 mg PLAVIX given in lab by Colin Hill RN via Oral. Ordered by Rosalio Em. 16:06:27 1 mg VERSED given in lab by Colin Hill RN in Left Antecubital via Peripheral IV. Ordered by Rosalio Em. 16:06:28 ANGIOSEAL, FR6 VIP FR 6 placement in the Fem Art (right) 16:06:51 HR=86 bpm, XQSB=912/81 mmhg, GfE8=813.0 %, Resp=16 B/min, Pain=0, Johnathon=10, Gamez=2 16:07:22 Case End Assessment: Final Case, HR=83 BPM, Rhythm=nsr, UUXK=975/81 mmhg, Chest Pain=0, Edema=None, Col or=Normal, Skin = Warm, Dry Right Pulses: Guzman Ped=2, Femoral=2 16:08:42 Left Pulses: Guzman Ped=1 Neurological: State=Alert, Ox3, MONTOYA Respiration: Resp=15 B/min, SpO2=97 % 16:09:17 Sterile dressing applied to site 16:09:18 No case complications noted. 16:09:19 Cine recording checked. 16:09:20 Holding Area notified of successful intervention. 16:09:21 Bedside Report will be given. 16:09:21 Implantable Device card placed in patient's chart. 16:09:23 Verbal Stimulation=2 Physical Stimulation=2 Airway=2 Respiration=2 TOTAL=8. (0=absent, 1=l imited, 2=present) 16:09:32 A Left Heart Cath was performed. 16:12:27 UBPV=070/84 mmhg 16:12:46 Vitals capture stopped. 16:13:[facility] - Contrast Media Used In Study Contrast Total Opened (mL) Total Used (mL) Total Wasted (mL) Omnipaque 160 160 0 End Study - Maximum Contrast Load Max Contrast Load (mL) 618.8 End Study - Radiation Exposure Fluoro Time (minutes) 6.6 End Study - Patient Disposition Complications Transferred To Interventional Outcome No Agricultural Equipment Sales Engineer Holding successful
[2018-01-27] MEDS ORDERED: MISC INFORMATION XX ONE (16:30)
--- NOTE | 2018-01-27 16:46 | MR ---
cc: Rosalio Em MD DATE: 01/27/2018 INDICATIONS: Non-ST elevation myocardial infarction. Class IV angina. PROCEDURE PERFORMED: 1. Retrograde left heart catheterization with left ventriculography and selective coronary angiography. 2. Angioplasty and stenting of the mid-left circumflex artery. 3. Moderate sedation. ACCESS SITE: Right femoral artery. EQUIPMENT USED: A 5-[place] pigtail catheter, 5-[place] JL4 and AR modified coronary catheters. XB circumflex guide, BMW wire, 2.0 x 10 mm balloon for predilatation, 2.75 x 18 mm Integrity stent at 16 atmospheres. MEDICATIONS: Versed IV, fentanyl IV, heparin IV, nitroglycerin IC, Plavix 600 mg p.o. CONTRAST: Omnipaque 160 mL COMPLICATIONS: None. ESTIMATED BLOOD LOSS: Less than 10 mL METHOD OF HEMOSTASIS: Angio-Seal closure. RESULTS: A. HEMODYNAMICS: Heart rate 86 beats per minute. Left ventricular end-diastolic pressure of 12 mmHg. Left ventricle 115/12. Aorta 115/72/92. B. LEFT VENTRICULOGRAPHY: The ejection fraction is 30%. Wall Motion: Distal anterior akinesis and a focal mid-anterolateral hypokinesis. No mitral regurgitation. C. CORONARY ANGIOGRAPHY: The left main coronary artery has 20% distal stenosis. The proximal LAD is patent. The Mid-LAD had 60% stenosis. First diagonal artery has 60% proximal stenosis. Second diagonal artery totally occluded in-stent. The left circumflex artery has 95% stenosis in the mid-portion. Obtuse marginal artery has 20% proximal stenosis. The right coronary artery is a large, dominant vessel with 60% stenosis in the mid-portion. PDA patent. PLV patent. The stenosis in the mid-left circumflex is 12 mm long. Pre-WILLAM flow 2. Post-WILLAM flow 3. Post-stenosis 0. Post-intervention angiography revealed excellent patency of the stented segment and no evidence of dissection, thrombosis or distal embolization. DISPOSITION: Mr. Valencia will be monitored on telemetry after his procedure. I recommend to continue Plavix for 3 months and baby aspirin indefinitely. I also recommend to continue aggressive modification of his cardiac risk factors. He should follow up with his PCP in his office after discharge. MD YARY Florentino/MCKENNA , 04:18 PM , 04:44 PM
[2018-01-27] MEDS ORDERED: SODIUM CHLOR 0.9% 1000 ML INJ 1,000 ML IV SCH (17:00)
[2018-01-27] MEDS ORDERED: IOHEXOL 350 MG/ML 100 ML BTL (for Cath Lab) OTHER ONE (17:44)
--- NOTE | 2018-01-27 20:25 | EKG ---
Date Performed: 01/27/2018 Time Performed: 02:05:47 PTAGE: 62 years EKG: Sinus rhythm CONSIDER INFERIOR MYOCARDIAL INFARCTION-age undeterminate. POSSIBLE ANTEROLATERAL MYOCARDIAL INFARCT ION ABNORMAL ECG PREVIOUS TRACING : 01/26/2018 20.08 DOCTOR: Kaden Gaines Interpretating Date/Time 01/27/2018 20:24:14
--- NOTE | 2018-01-27 20:25 | EKG ---
Date Performed: 01/26/2018 Time Performed: 20:08:35 PTAGE: 62 years EKG: Sinus rhythm CONSIDER POSSIBLE INFERIOR MYOCARDIAL INFARCTION-age Undetermined BORDERLINE ECG PREVIOUS TRACING : 09/06/2016 08.57 DOCTOR: Kaden Gaines Interpretating Date/Time 01/27/2018 20:23:40
[2018-01-27] MEDS ORDERED: ATORVASTATIN 40 MG TAB PO SCH (21:00)
[2018-01-27] MEDS: CARVEDILOL 3.125 MG TAB PO SCH (22:33)
[2018-01-28] VITALS (11 sets, daily range): BP systolic 127–133; BP diastolic 77–98; PULSE 80–102; RESP 14–20; TEMP 98.3–98.6; O2SAT 96–97
[2018-01-28] MEDS: SODIUM CHLOR 0.9% 1000 ML INJ 1,000 ML IV SCH ×2 (00:15→10:15)
[2018-01-28 06:47] LABS: AUTOMATED NEUTROPHIL # 3.9 TH/MM3 (1.8-7.7); BASOPHIL % 0.8 % (0.0-2.0); EOSINOPHIL # 0.1 TH/MM3 (0-0.4); EOSINOPHIL % 2.1 % (0.0-4.0); HEMATOCRIT 44.2 % (39.0-51.0); LYMPH % 25.9 % (9.0-44.0); LYMPHOCYTE # 1.6 TH/MM3 (1.0-4.8); MEAN CELL VOLUME 102.4 FL (80.0-100.0); MEAN CORPUSCULAR HEMOGLOBIN 34.7 PG (27.0-34.0); MEAN CORPUSCULAR HGB CONC 33.8 % (32.0-36.0); MEAN PLATELET VOLUME 8.2 FL (7.0-11.0); MONO % 10.1 % (0.0-8.0); MONOCYTE # 0.6 TH/MM3 (0-0.9); NEUT % 61.1 % (16.0-70.0); PLATELET COUNT 196 TH/MM3 (150-450); RED BLOOD COUNT 4.32 MIL/MM3 (4.50-5.90); RED CELL DISTRIBUTION WIDTH 12.4 % (11.6-17.2); WHITE BLOOD COUNT 6.3 TH/MM3 (4.0-11.0)
[2018-01-28 07:27] LABS: BICARBONATE 27.9 MEQ/L (21.0-32.0); CALCIUM 8.8 MG/DL (8.5-10.1); CREATININE 0.81 MG/DL (0.60-1.30)
[2018-01-28 07:30] LABS: CHOLESTEROL/ HDL RATIO 6.32 RATIO; HDL CHOLESTEROL 40.8 MG/DL (40.0-60.0)
[2018-01-28] MEDS ORDERED: ASPIRIN 81 MG CHEW TAB PO SCH (09:00)
[2018-01-28] MEDS ORDERED: LISINOPRIL 5 MG TAB PO SCH (09:00)
[2018-01-28] MEDS ORDERED: CLOPIDOGREL 75 MG TAB PO SCH (09:00)
[2018-01-28] MEDS: CARVEDILOL 3.125 MG TAB PO SCH (09:11)
[2018-01-28] MEDS: SODIUM CHLORIDE 0.9% FLUSH 10 ML FLUSH IV FLUSH SCH (09:11)
--- NOTE | 2018-01-28 12:30 | HHI.PR ---
Subjective Remarks Patient says he is feeling all right. Denies any chest pain shortness of breath. Denies any nausea vomiting. He agrees to stay away from cocaine and other stimulants per Objective Vital Signs Date Time Temp Pulse Resp B/P (MAP) Pulse Ox O2 Delivery O2 Flow Rate FiO2 01/28/18 09:00 80 01/28/18 08:07 98.6 94 14 132/98 (109) 97 01/28/18 08:00 80 01/28/18 07:00 96 01/28/18 06:00 90 01/28/18 05:00 82 01/28/18 04:00 98.5 88 18 127/87 (100) 96 01/28/18 04:00 86 01/28/18 03:00 82 01/28/18 02:00 102 01/28/18 01:00 88 01/28/18 00:00 88 01/28/18 00:00 98.3 95 20 133/77 (95) 96 01/27/18 23:00 102 01/27/18 22:00 98.0 103 20 128/91 (103) 97 01/27/18 22:00 104 01/27/18 22:00 104 01/27/18 16:21 99 Room Air I/O 01/27/18 01/27/18 01/27/18 01/28/18 01/28/18 01/28/18 07:00 15:00 23:00 07:00 15:00 23:00 Intake Total 240 ml Output Total 3 ml Balance 237 ml Intake Oral 240 ml Output Urine Total 3 ml # Bowel Movements 0 Result Diagram: 01/28/18 0554 01/28/18 0554 Objective Remarks GENERAL: Patient sitting up in bed. Appears comfortable. Alert and oriented 3. SKIN: Warm and dry. HEAD: Normocephalic. EYES: No scleral icterus. No injection or drainage. NECK: Supple, trachea midline. No JVD. CARDIOVASCULAR: Regular rate and rhythm without murmurs, gallops, or rubs. RESPIRATORY: Breath sounds equal bilaterally. No accessory muscle use. GASTROINTESTINAL: Abdomen soft, non-tender, nondistended. MUSCULOSKELETAL: No cyanosis, or edema. BACK: Nontender without obvious deformity. No CVA tenderness. A/P Assessment and Plan 62 y/o male with a history of CAD with stenting, HTN (not on any medications), BPH,and cocaine abuse presented to the [place] ED with complaints of chest pressure. //NSTEMI EKG reviewed and shows SR, no ST elevation Troponin .12-->20.40 -Heparin drip -Consult cardiology -Morphine IV for chest pain -Serial troponin and EKGs -ASA x 1 = Status post stenting. Continue on Plavix and aspirin. All with cardiology as outpatient. Patient conveys understanding. //HTN, chronic not on any medications -Clonidine PRN, monitor vitals //Cocaine abuse -Counseled. Patient agrees to stay away from cocaine. //DVT prophylaxis: Heparin Discharge Planning Discharge home when cleared by cardiology. Follow-up with cardiology as outpatient. Continue aspirin Plavix. Hemant Matthews MD January 28, 2018 12:30
[2018-01-28] MEDS ORDERED: ATOR40TA16 PO (12:34)
[2018-01-28] MEDS ORDERED: LISI-519 PO (12:34)
[2018-01-28] MEDS ORDERED: ASPI81 PO ×2 (12:34→12:42)
[2018-01-28] MEDS ORDERED: CARV3.125 PO (12:34)
[2018-01-28] MEDS ORDERED: PLAV75TA29 PO ×2 (12:34→12:42)
--- NOTE | 2018-01-28 12:44 | HHI.DS ---
Discharge Summary Admission Date January 26, 2018 at 21:58 Discharge Date: January 28, 2018 Admitting Diagnosis Non-ST elevation NE (1) Non-ST elevation NE (NSTEMI) ICD Code: I21.4 - Non-ST elevation (NSTEMI) myocardial infarction Status: Acute (2) Cocaine abuse ICD Code: F14.10 - Cocaine abuse, uncomplicated Status: Acute Procedures Cardiac catheterization with stenting. Please see report Brief History - From Admission 62 y/o male with a history of CAD with stenting, HTN (not on any medications), BPH,and cocaine abuse presented to the [facility] with complaints of chest pressure. Patient was found to have a troponin of .12 and was transferred to the main facility. Upon examination patient is laying in bed, states he has not had any chest pain since he arrived. He states prior to his arrival to the ED earlier he had one episode of chest pressure that resolved. No associated symptoms or radiation. Denies any sob , fever or chills. He states his last cocaine use was 1 week ago. He complaining of right elbow intermittent pain from a fall one week ago, worse with flexion. He states his last stent was 6 years ago and he does not follow with a electroless plater. CBC/BMP: 01/28/18 0554 01/28/18 0554 Significant Findings Laboratory Tests Test 01/26/18 20:28 01/27/18 02:00 01/27/18 04:20 01/27/18 10:15 Mean Corpuscular Volume 100.4 FL (80.0-100.0) 103.0 FL (80.0-100.0) Neutrophils (%) (Auto) 70.2 % (16.0-70.0) Activated Partial Thromboplast Time 23.3 SEC (24.3-30.1) 32.4 SEC (24.3-30.1) Random Glucose 246 MG/DL (74-106) 148 MG/DL (74-106) Sodium Level 135 MEQ/L (136-145) 135 MEQ/L (136-145) Estimat Glomerular Filtration Rate 56 ML/MIN (>89) Creatine Kinase MB 5.2 NG/ML (0.5-3.6) 102.5 NG/ML (0.5-3.6) 130.5 NG/ML (0.5-3.6) Troponin I 0.12 NG/ML (0.02-0.05) 20.40 NG/ML (0.02-0.05) GREATER THAN 40.00 NG/ML Total Creatine Kinase 1119 U/L (39-308) 1474 U/L (39-308) Creatine Kinase MB % 9.2 % (0.0-4.0) 8.9 % (0.0-4.0) Red Blood Count 4.36 MIL/MM3 (4.50-5.90) Mean Corpuscular Hemoglobin 35.3 PG (27.0-34.0) Test 01/27/18 10:25 01/28/18 05:54 Urine Cocaine Screen POS (NEG) Urine Cannabinoids Screen POS (NEG) Red Blood Count 4.32 MIL/MM3 (4.50-5.90) Mean Corpuscular Volume 102.4 FL (80.0-100.0) Mean Corpuscular Hemoglobin 34.7 PG (27.0-34.0) Monocytes (%) (Auto) 10.1 % (0.0-8.0) Random Glucose 154 MG/DL (74-106) Total Creatine Kinase 504 U/L (39-308) Creatine Kinase MB 22.5 NG/ML (0.5-3.6) Creatine Kinase MB % 4.5 % (0.0-4.0) Triglycerides Level 285 MG/DL (42-150) Cholesterol Level 258 MG/DL (120-200) LDL Cholesterol 160 MG/DL (0-99) Imaging Last Impressions Elbow X-Ray 01/27/18 0000 Signed Impressions: Service Date/Time: Saturday, January 27, 2018 11:47 - CONCLUSION: Soft tissue swelling. No fracture. Allan Ojeda MD Chest X-Ray 01/26/182011 Signed Impressions: Service Date/Time: Friday, January 26, 2018 20:34 - CONCLUSION: No acute disease. Allan Ojeda MD Hospital Course Patient was found to have troponin elevation above 40.0. Patient underwent cardiac catheterization with PCI. Please see report. Patient is found to be cocaine positive. Patient agrees to avoid cocaine or any stimulants. Patient will need to continue on Plavix for 3 months, aspirin indefinitely. Patient also started on beta-echo, statin, lisinopril. Follow-up with primary care and cardiology as outpatient. 62 y/o male with a history of CAD with stenting, HTN (not on any medications), BPH,and cocaine abuse presented to the [facility] with complaints of chest pressure. //NSTEMI EKG reviewed and shows SR, no ST elevation Troponin .12-->20.40 -Heparin drip -Consult cardiology -Morphine IV for chest pain -Serial troponin and EKGs -ASA x 1 = Status post stenting. Continue on Plavix and aspirin. All with cardiology as outpatient. Patient conveys understanding. //HTN, chronic not on any medications -Clonidine PRN, monitor vitals //Cocaine abuse -Counseled. Patient agrees to stay away from cocaine. //DVT prophylaxis: Heparin Discharge Planning Discharge home when cleared by cardiology. Follow-up with cardiology as outpatient. Continue aspirin Plavix. Pt Condition on Discharge: Good Discharge Disposition: Discharge Home Discharge Time: > 30 minutes Discharge Instructions DIET: Follow Instructions for: Heart Healthy Diet Activities you can perform: Regular-No Restrictions Follow up Referrals: Cardiology - 2 Weeks with Rosalio Em MD PCP Follow-up - 1 Week with Silva Ayala New Medications: Aspirin (Tgt Aspirin) 81 Mg Chw 81 MG PO DAILY for Blood Clot Prevention for 30 Days, #30 EA You will need to take this medication indefinitely. Atorvastatin (Atorvastatin) 40 Mg Tab 40 MG PO HS for Cholesterol Management for 30 Days, TAB Carvedilol (Coreg) 3.125 Mg Tab 3.125 MG PO BID for heart for 30 Days, #60 TAB Clopidogrel (Plavix) 75 Mg Tab 75 MG PO DAILY for Blood Clot Prevention for 30 Days, #90 TAB You will need to take this medication for 3 months. Lisinopril (Lisinopril) 5 Mg Tab 5 MG PO DAILY for heart, #30 TAB Hemant Matthews MD January 28, 2018 12:44
--- NOTE | 2018-01-28 15:42 | PD.CARD.PN ---
Subjective Subjective Remarks No CP or SOB Objective Medications Current Medications Medications (Trade) Dose Ordered Sig/Sadi Route Start Time Stop Time Status Last Admin (NS Flush) 2 ml UNSCH PRN IV FLUSH 01/26/18 22:30 (NS Flush) 2 ml BID IV FLUSH 01/27/18 09:00 01/28/18 09:11 (Tylenol) 650 mg Q4H PRN PO 01/26/18 22:30 (Narcan Inj) 0.4 mg UNSCH PRN IV PUSH 01/26/18 22:30 Sodium Chloride 1,000 ml @ 100 mls/hr Q10H IV 01/27/18 04:15 01/27/18 14:07 (Aspirin Chew) 81 mg DAILY PO 01/28/18 09:00 01/28/18 09:11 (Plavix) 75 mg DAILY PO 01/28/18 09:00 01/28/18 09:11 (Coreg) 3.125 mg BID PO 01/27/18 21:00 01/28/18 09:11 (Prinivil) 5 mg DAILY PO 01/28/18 09:00 01/28/18 09:11 (Lipitor) 40 mg HS PO 01/27/18 21:00 01/27/18 22:33 Vital Signs / I&O Vital Signs Date Time Temp Pulse Resp B/P (MAP) Pulse Ox O2 Delivery O2 Flow Rate FiO2 01/28/18 09:00 80 01/28/18 08:07 98.6 94 14 132/98 (109) 97 01/28/18 08:00 80 01/28/18 07:00 96 01/28/18 06:00 90 01/28/18 05:00 82 01/28/18 04:00 98.5 88 18 127/87 (100) 96 01/28/18 04:00 86 01/28/18 03:00 82 01/28/18 02:00 102 01/28/18 01:00 88 01/28/18 00:00 88 01/28/18 00:00 98.3 95 20 133/77 (95) 96 01/27/18 23:00 102 01/27/18 22:00 98.0 103 20 128/91 (103) 97 01/27/18 22:00 104 01/27/18 22:00 104 01/27/18 16:21 99 Room Air I/O 01/27/18 01/27/18 01/27/18 01/28/18 01/28/18 01/28/18 07:00 15:00 23:00 07:00 15:00 23:00 Intake Total 240 ml Output Total 3 ml Balance 237 ml Intake Oral 240 ml Output Urine Total 3 ml # Bowel Movements 0 Physical Exam GENERAL: In NAD. SKIN: Warm and dry. HEAD: Normocephalic. EYES: No scleral icterus. No injection or drainage. NECK: Supple, trachea midline. No JVD or lymphadenopathy. CARDIOVASCULAR: Regular rate and rhythm without murmurs, gallops, or rubs. RESPIRATORY: Breath sounds equal bilaterally. No accessory muscle use. GASTROINTESTINAL: Abdomen soft, non-tender, nondistended. MUSCULOSKELETAL: No cyanosis, or edema. Groin stable Laboratory Laboratory Tests Test 01/28/18 05:54 White Blood Count 6.3 TH/MM3 Red Blood Count 4.32 MIL/MM3 Hemoglobin 15.0 GM/DL Hematocrit 44.2 % Mean Corpuscular Volume 102.4 FL Mean Corpuscular Hemoglobin 34.7 PG Mean Corpuscular Hemoglobin Concent 33.8 % Red Cell Distribution Width 12.4 % Platelet Count 196 TH/MM3 Mean Platelet Volume 8.2 FL Neutrophils (%) (Auto) 61.1 % Lymphocytes (%) (Auto) 25.9 % Monocytes (%) (Auto) 10.1 % Eosinophils (%) (Auto) 2.1 % Basophils (%) (Auto) 0.8 % Neutrophils # (Auto) 3.9 TH/MM3 Lymphocytes # (Auto) 1.6 TH/MM3 Monocytes # (Auto) 0.6 TH/MM3 Eosinophils # (Auto) 0.1 TH/MM3 Basophils # (Auto) 0.0 TH/MM3 CBC Comment DIFF FINAL Differential Comment Blood Urea Nitrogen 14 MG/DL Creatinine 0.81 MG/DL Random Glucose 154 MG/DL Calcium Level 8.8 MG/DL Sodium Level 136 MEQ/L Potassium Level 4.2 MEQ/L Chloride Level 100 MEQ/L Carbon Dioxide Level 27.9 MEQ/L Anion Gap 8 MEQ/L Estimat Glomerular Filtration Rate 97 ML/MIN Total Creatine Kinase 504 U/L Creatine Kinase MB 22.5 NG/ML Creatine Kinase MB % 4.5 % Triglycerides Level 285 MG/DL Cholesterol Level 258 MG/DL LDL Cholesterol 160 MG/DL HDL Cholesterol 40.8 MG/DL Cholesterol/HDL Ratio 6.32 RATIO Assessment and Plan Problem List: (1) Non-ST elevation CT (NSTEMI) ICD Codes: I21.4 - Non-ST elevation (NSTEMI) myocardial infarction Status: Acute (2) Cardiomyopathy ICD Codes: I42.9 - Cardiomyopathy, unspecified (3) Cocaine abuse ICD Codes: F14.10 - Cocaine abuse, uncomplicated Status: Acute (4) HTN (hypertension) ICD Codes: I10 - Essential (primary) hypertension (5) Hyperlipidemia ICD Codes: E78.5 - Hyperlipidemia Status: Acute (6) Smoker ICD Codes: Z72.0 - Smoker Status: Acute Assessment and Plan No angina or CHF. Continue Plavix for 3 mo and baby ASA long-term. Continue tx for CHF including beta echo and lisinopril. Continue statin. DC home. F/u in [facility] after discharge. Pt and daughter counseled on smoking and cocaine use. Roslaio Em MD January 28, 2018 15:42
== END 2018-01-28 15:53 | disposition home or self-care (01) | DRG 247 ==
LOC: PHED 20:02 → PHEDA 21:58 → UNDOADMIN 21:58 → PHEDA 23:57 → N04A 23:57 → HCIS 01-27 17:25
PROVIDERS: ADMIT Hospitalist; ATTEND Hospitalist
PROC: 027034Z Dilation of Coronary Artery, One Artery with Drug-eluting Intraluminal Device, Percutaneous Approach (ICD-10-PCS; principal; 2018-01-27)
PROC: B2151ZZ Fluoroscopy of Left Heart using Low Osmolar Contrast (ICD-10-PCS; 2018-01-27)
PROC: B2111ZZ Fluoroscopy of Multiple Coronary Arteries using Low Osmolar Contrast (ICD-10-PCS; 2018-01-27)
PROC: 4A023N7 Measurement of Cardiac Sampling and Pressure, Left Heart, Percutaneous Approach (ICD-10-PCS; 2018-01-27)
DX: I21.4 Non-ST elevation (NSTEMI) myocardial infarction (principal); I42.9 Cardiomyopathy, unspecified; I11.0 Hypertensive heart disease with heart failure; I50.9 Heart failure, unspecified; Z95.5 Presence of coronary angioplasty implant and graft; I25.119 Atherosclerotic heart disease of native coronary artery with unspecified angina pectoris; N40.0 Benign prostatic hyperplasia without lower urinary tract symptoms; F14.10 Cocaine abuse, uncomplicated; F17.200 Nicotine dependence, unspecified, uncomplicated; E78.5 Hyperlipidemia, unspecified
CPT/HCPCS: 71046; 73080; 80048; 80061; 80307; 82550; 82552; 83735; 84484; 85002; 85025; 85610; 85730; 92928; 93005; 93458; 99152; 99153; C1725; C1760; C1769; C1876; C1887; C1893; G0269; J1644; J2250; J2550; J3010; J7030; Q9967